=== PATIENT | male | born 1970 | race Caucasian/White ===

== ENCOUNTER 2018-05-28 20:34 | Emergency (ER) | payer MEDICAID ==
[~2018-05-28] VITALS: Ht 185.4 cm; Wt 88.5 kg
[~2018-05-28 20:34] MED LIST: ALPR.25 PO; ASPI325 PO; Amitriptyline H25 MG PO; Bactrim Ds Tab1 EACH PO; CEPH500 PO; CHLO25 PO; CITA20 PO; COLC.6 PO; FOLI1 PO; KETO10 PO; METPRE4DP PO; METTREX2.5 PO; NAPR500 PO; Norco 10-325 T1 EACH PO; OXYACE5T PO; PROM25 PO; Percocet 5-3251 EACH PO; Prednisone20 MG PO; Trexall10 MG PO; Ultram50 MG PO; Vibramycin100 MG PO
[2018-05-28] MEDS ORDERED: KETO10 PO (20:57)
[2018-05-28] MEDS ORDERED: HYDROCORTISON28.4 G4 TOP (20:57)
== END 2018-05-28 21:19 | disposition home or self-care (01) ==
LOC: ER 20:34
DX: L40.9 Psoriasis, unspecified (principal); I10 Essential (primary) hypertension; F17.200 Nicotine dependence, unspecified, uncomplicated
CPT/HCPCS: 99282

== ENCOUNTER 2019-03-14 10:15 | Emergency (ER) | payer MEDICARE ==
[~2019-03-14] VITALS: Ht 182.9 cm; Wt 90.7 kg
[~2019-03-14 10:15] MED LIST changes: +HYDROCORTISON28.4 G4 TOP
[2019-03-14] MEDS ORDERED: IBUP800 PO (12:07)
[2019-03-14] MEDS ORDERED: Norco 5-325 Ta1 EACH PO (12:13)
== END 2019-03-14 12:22 | disposition home or self-care (01) ==
LOC: ER 10:15
DX: M87.9 Osteonecrosis, unspecified (principal); I10 Essential (primary) hypertension; F17.200 Nicotine dependence, unspecified, uncomplicated
CPT/HCPCS: 72100; 73502; 99283-25

== ENCOUNTER 2019-09-30 08:31 | Inpatient (IN) | payer MEDICARE, OTHER ==
[~2019-09-30] VITALS: Ht 177.8 cm; Wt 104.6 kg
[~2019-09-30 08:31] MED LIST changes: +ACET500 PO; +CYCL10 PO; +IBUP400 PO; +IBUP800 PO; +Norco 5-325 Ta1 EACH PO
[2019-09-30 08:54] LABS: Base Excess Venous -21.4 mmol/L; Bicarbonate Venous 10.7 mmol/L (24.0-30.0); PCO2 Venous 29.6 mmHg (38-42); PO2 Venous 73.4 mmHg (38-42)
[2019-09-30 08:56] LABS: pH Blood Venous 7.08 (7.34-7.37)
[2019-09-30 08:58] LABS: Hemoglobin 16.7 g/dL (13.5-17.5); Mean Corpuscular HGB 31.6 pg (26.0-34.0); Mean Corpuscular HGB Conc 32.1 g/dL (31.5-36.5); Mean Corpuscular Volume 99 fL (80-100); Mean Platelet Volume 12.4 fL (9.1-12.4); Platelet Count 77 K/mm3 (150-400); RDW Coefficient Variation 15.2 % (11.7-14.2); RDW Standard Deviation 55.2 fL (35.1-46.3); Red Blood Cell Count 5.28 M/mm3 (4.30-5.90); White Blood Cell Count 33.63 K/mm3 (4.00-11.30)
[2019-09-30 09:08] LABS: Albumin, Blood 1.7 g/dL (3.4-5.0); Albumin/Globulin Ratio 0.2 (0.8-1.8); Bilirubin, Total 5.6 mg/dL (0.1-1.0); Calcium, Blood 7.8 mg/dL (8.5-10.1); Creatinine, Blood 2.16 mg/dL (0.60-1.20); Globulin, Blood 7.4 g/dL (2.2-4.0); Potassium, Blood 5.8 mmol/L (3.5-5.5); Total Protein, Blood 9.1 g/dL (6.4-8.2)
[2019-09-30 09:11] LABS: Creatine Kinase MB 45.4 ng/mL (0.0-3.6)
[2019-09-30 09:22] LABS: Source, Urine Catheter
[2019-09-30 09:23] LABS: BAND PERCENT MAN 7 % (0-8); BASOPHILS PERCENT MAN 0 % (0-2); EOSINOPHILS PERCENT MAN 0 % (0-6); LYMPHOCYTES ABSOLUTE MAN 1.34 K/mm3 (0.84-5.20); LYMPHOCYTES PERCENT MAN 4 % (21-46); MONOCYTES ABSOLUTE MAN 2.69 K/mm3 (0.16-1.47); MONOCYTES PERCENT MAN 8 % (4-13); NEUTROPHILS ABSOLUTE MAN 29.59 K/mm3 (1.96-9.15); SEG NEUTROPHILS PERCENT MAN 81 % (41-73); TOTAL CELLS COUNTED 100
[2019-09-30 09:27] LABS: Blood, Urine 2+ (Neg); Glucose Qualitative, Urine Neg (Neg); Ketones, Urine Neg (Neg); Leukocyte Esterase, Urine 1+ (Neg); Nitrite, Urine Neg (Neg); Protein, Urine 1+ (Neg); Urobilinogen, Urine 3+ (Normal)
[2019-09-30 09:31] LABS: Creatine Kinase MB Index 1.8 (0.0-4.0)
[2019-09-30 09:37] LABS: Appearance, Urine Clear (Clear); Bilirubin, Urine 1+ (Neg); Color, Urine Amber (P-Yellow)
[2019-09-30 09:40] LABS: Amorphous Light (0-Heavy); Bacteria Mod /hpf; Squamous Epithelial Cells Few /hpf (Few); Transitional Epithelial Cells Rare /hpf (0-Rare)
[2019-09-30 09:45] LABS: U Amphetamine Screen DETECTED; U Barbituate Screen Not Detected; U Benzodiazapine Screen Not Detected; U Buprenorphine Screen Not Detected; U Cannabinoids Screen Not Detected; U Cocaine Screen Not Detected; U Methadone Screen Not Detected; U Methamphetamine Screen DETECTED; U Opiates Screen DETECTED; U Oxycodone Screen Not Detected; U Phencyclidine Screen Not Detected; U Propoxyphene Screen Not Detected
[2019-09-30 11:35] LABS: Calcium, Ionized (POC) 0.66 mmol/L (1.10-1.46); Chloride (POC) 104 mmol/L (98-108); Creatinine (POC) 2.4 mg/dL (0.8-1.3); Glucose (ISTAT POC) 256 mg/dL (70-99); Hemoglobin (POC) 14.3 g/dL (13.5-17.5); Potassium (POC) >9.0 mmol/L (3.5-5.5); Sodium (POC) 126 mmol/L (135-148); Total CO2 (POC) 11 mmol/L (21-32)
[2019-09-30 11:45] LABS: Base Excess Venous -18.1 mmol/L; Bicarbonate Venous 12.2 mmol/L (24.0-30.0); PCO2 Venous 28.3 mmHg (38-42); PO2 Venous 86.7 mmHg (38-42)
[2019-09-30 11:46] LABS: pH Blood Venous 7.17 (7.34-7.37)
[2019-09-30 12:18] LABS: Albumin, Blood 1.2 g/dL (3.4-5.0); Albumin/Globulin Ratio 0.2 (0.8-1.8); Bilirubin, Total 4.8 mg/dL (0.1-1.0); Calcium, Blood 6.4 mg/dL (8.5-10.1); Creatinine, Blood 2.1 mg/dL (0.60-1.20); Globulin, Blood 5.1 g/dL (2.2-4.0); Potassium, Blood 5.6 mmol/L (3.5-5.5); Total Protein, Blood 6.3 g/dL (6.4-8.2)
[2019-09-30 14:18] LABS: Acetaminophen, Random <2.0 ug/mL (10.0-30.0); Salicylate <1.7 mg/dL (2.8-20.0)
[2019-09-30 15:26] LABS: BASOPHILS ABSOLUTE AUTO 0.13 K/mm3 (0.00-0.23); BASOPHILS PERCENT AUTO 1 % (0-2); Hematocrit 38.7 % (37.0-53.0); Hemoglobin 12.9 g/dL (13.5-17.5); LYMPHOCYTES PERCENT AUTO 3 % (21-46); MONOCYTES ABSOLUTE AUTO 0.81 K/mm3 (0.16-1.47); MONOCYTES PERCENT AUTO 4 % (4-13); Mean Corpuscular HGB 31.5 pg (26.0-34.0); Mean Corpuscular HGB Conc 33.3 g/dL (31.5-36.5); Mean Platelet Volume 12.2 fL (9.1-12.4); RDW Standard Deviation 52.4 fL (35.1-46.3); White Blood Cell Count 21.14 K/mm3 (4.00-11.30)
[2019-09-30 15:28] LABS: Mean Corpuscular Volume 94 fL (80-100)
[2019-09-30 15:29] LABS: EOSINOPHILS PERCENT AUTO 0 % (0-6); IMMATURE GRAN ABSOLUTE AUTO 0.18 K/mm3 (0.00-0.10); IMMATURE GRAN PERCENT AUTO 1 % (0-1); NEUTROPHILS ABSOLUTE AUTO 19.32 K/mm3 (1.96-9.15); NEUTROPHILS PERCENT AUTO 91 % (41-73)
[2019-09-30 15:31] LABS: Platelet Count 48 K/mm3 (150-400)
--- NOTE | 2019-09-30 16:57 | NUR ---
1500 PT WAS ADMITTED VIA STRETCHER TO ICU-5 AND WILL AROUSE TO QUESTIONS AND COMMENTS BUT RETURNS FALLS OFF TO SLEEP WHEN LEFT ALONE. PT IS ON 6L OXY AND LUNGS ARE VERY DIMINISHED. VS NOTED AND SL LOW. BOLUS TO FOLLOW AND NS HANGING. PT IS TENDER TO MOST OF BODY IF TOUCHED, SEE LACTIC ACID. PT HAS MULTIPLE BLOOD BLISTER OF BLLE, SEE PHOTOS. THE IS A APPROX 4 TO 5 CM SPLIT IN THE SKIN THAT IS TO BE CULTURED AFTER THE PICC LINE IS PLACED. PT HAS WICK TEMP PROBE AND UA WAS SENT FROM ED TO LAB POST CATH. PT IS C/O PAIN WITH TOUCHING AND MOVING OF EXTREMETIES AT RANDOM TIMES WHEN HIS IS ADIQUATELY AROUSED. ABX INFUSING AND NS AT 150ML THEN BOLUS PER DR HORVATH.
--- NOTE | 2019-09-30 17:40 | NUR ---
PT VS HAVE IMPROVED NOTED AND SATS REMAIN STABLE, SEE FLOW SHEET. PT REMAINS CONT TO SLEEP AND AMS. PT HAS REINA PICC AND COMPLETING BOLUS OF NS THAT WILL CONTINUE AT 150 ML ALONG WITH ABX INFUSION. UO HAS BEEN NOTED OF DARK BRAEDEN URINE VIA WICK. UPPER BUTTOCK CRACK SKIN SPLIT/WOUND CULTURE SENT AND PHOTOS DOCUMENTED.
--- NOTE | 2019-09-30 18:40 | NUR ---
PT CBG NOTED AND WILL NONITOR AND REPORT STATUS.
--- NOTE | 2019-09-30 19:54 | NUR ---
Echocardiogram completed.
--- NOTE | 2019-09-30 20:56 | NUR ---
ECHO DONE, PATIENT C/O PAIN WITH SLIGHT MOVEMENT AND WITH PRESSURE DURING ECHO. PATIENT ALSO C/O DRY MOUTH, WITH ORAL CARE ABLE TO GET MODERATE AMT OF THICK MARTÍNEZ SPUTUM OFF OF TONGUE AND STUCK TO ROOF OF MOUTH. PATIENT INCONT OF SOFT BROWN STOOL, ATTENDS CHANGED AND SKIN CLEANSED, DUE TO EXCORIATED SKIN UNABLE TO PLACE DRESSING TO COCCYX WOUND. PLAN TO ATTEMPT TO KEEP SKIN CLEAN AND DRY AND TO KEEP PATIENT POSITIONED SIDE TO SIDE MUCH POSSIBLE. CONTINUES ON 4L/OXY. SCD'S DC'D BY DOCTOR ALEXANDRU DUE TO WOUNDS ON LEGS.
[2019-10-01 04:45] LABS: BASOPHILS ABSOLUTE AUTO 0.03 K/mm3 (0.00-0.23); BASOPHILS PERCENT AUTO 0 % (0-2); EOSINOPHILS PERCENT AUTO 0 % (0-6); Hematocrit 36.6 % (37.0-53.0); Hemoglobin 12.2 g/dL (13.5-17.5); Mean Corpuscular HGB Conc 33.3 g/dL (31.5-36.5); Mean Corpuscular Volume 93 fL (80-100); Mean Platelet Volume 12.3 fL (9.1-12.4); RDW Coefficient Variation 14.9 % (11.7-14.2); RDW Standard Deviation 51.4 fL (35.1-46.3); Red Blood Cell Count 3.93 M/mm3 (4.30-5.90); White Blood Cell Count 14.59 K/mm3 (4.00-11.30)
[2019-10-01 04:53] LABS: IMMATURE GRAN ABSOLUTE AUTO 0.22 K/mm3 (0.00-0.10); IMMATURE GRAN PERCENT AUTO 2 % (0-1); LYMPHOCYTES ABSOLUTE AUTO 0.69 K/mm3 (0.84-5.20); LYMPHOCYTES PERCENT AUTO 5 % (21-46); MONOCYTES ABSOLUTE AUTO 1.44 K/mm3 (0.16-1.47); MONOCYTES PERCENT AUTO 10 % (4-13); NEUTROPHILS ABSOLUTE AUTO 12.21 K/mm3 (1.96-9.15); NEUTROPHILS PERCENT AUTO 84 % (41-73); Platelet Count 37 K/mm3 (150-400)
[2019-10-01 05:04] LABS: Magnesium, Blood 2.6 mg/dL (1.6-2.4)
[2019-10-01 05:07] LABS: Alanine Aminotransfer (ALT/SGP 410 U/L (12-78); Albumin, Blood 1.2 g/dL (3.4-5.0); Albumin/Globulin Ratio 0.2 (0.8-1.8); Alk Phos 144 U/L (50-136); Anion Gap 10 mmol/L (6-16); Aspartate Aminotrans (AST/SGOT 1008 U/L (12-37); Bilirubin, Total 5.8 mg/dL (0.1-1.0); Blood Urea Nitrogen 74 mg/dL (8-24); Bun/Creatinine Ratio 71.2 (12.0-20.0); CO2, Blood 20 mmol/L (21-32); Calcium, Blood 6.2 mg/dL (8.5-10.1); Chloride, Blood 115 mmol/L (98-108); Creatinine, Blood 1.04 mg/dL (0.60-1.20); Glomerular Filtration Rate >60 (60-); Glucose, Blood 126 mg/dL (70-99); Potassium, Blood 4.1 mmol/L (3.5-5.5); Total Protein, Blood 6.2 g/dL (6.4-8.2); Vancomycin, Random 10.1 ug/mL
[2019-10-01 05:17] LABS: PCO2 Arterial 27.5 mmHg (35-45); PO2 Arterial 80.6 mmHg (80-100); pH Blood Arterial 7.46 (7.35-7.45)
[2019-10-01 05:38] LABS: Sodium, Blood 145 mmol/L (136-145)
--- NOTE | 2019-10-01 06:01 | NUR ---
SUMMARY PATIENT AWAKENS EASILY TO SLIGHT STIMULI. REQUESTING WATER TO DRINK, FREQUENT ORAL CARE, SMALL SIPS WATER GIVEN WITH SPOON, PATIENT NIHARIKA WELL. OCCASIONAL COUGH WITH THICK MARTÍNEZ SPUTUM. PATIENT NOW ON RA. RESP CONTINUE 30'S. WICK DRAINING BRAEDEN URINE. PATIENT ABLE TO ASSIST WITH REPOSITIONING T/O NIGHT, ATTEMPTING TO KEEP PATIENT POSITIONED TO HIS SIDES DUE TO REDNESS AND WOUNDS TO HIS BACK AND BUTTOCKS.
--- NOTE | 2019-10-01 08:00 | NUR ---
BEGINNING OF SHIFT Assumed care at 0700. Bedside report received from Cassie GALEAS. Pt A&O x 2. Able to state correct year, but not month or day. Pt's main concern is getting something to drink. Pt NPO at this time. Oral care performed by this RN using suction toothette. Severely dry and cracked mucus membranes noted. Pt on room air. SpO2 90% or greater RA. ST per monitor, rate between 100 and 110. Puentes catheter in place draining clear ines urine. Pt has severely exoriated skin with several scabs and areas of compromised skin from waist down. Pt reports sitting in his own urine at home "since Tuesday" because he felt too weak to get up. Pt also states he has psoriasis, which he attributes to his poor skin condition. Stage 3 pressure ulcer to coccyx. Dr Gold to consult today and evaluate for surgery. Area AUTOMOBILE DAMAGE FIELD APPRAISER at this time because surrounding skin is severely exoriated and not appropriate for any adhesive.
--- NOTE | 2019-10-01 09:45 | NUR ---
ISTRATE IN TO SEE PT States concern that pt reports drinking heavily with relatives. Pt will not provide specifics as to quantity and frequency of alcohol consumption. Plan to monitor for signs of withdrawal.
--- NOTE | 2019-10-01 10:00 | NUR ---
DR PACKER IN TO SEE PT States pt may eat and drink. States patient to work with physical therapy today.
--- NOTE | 2019-10-01 10:45 | NUR ---
DR CABRERA IN TO SEE PATIENT States pt does not require surgery. States to place alginate to site and change dressing several times daily.
--- NOTE | 2019-10-01 12:10 | NUR ---
UPDATE Physical therapy worked with pt. Pt able to dangle on edge of bed but fatigued after about one minute. Attempted to give pt water to sip. Pt had wet cough immediately afterwards, that cleared after one minute. Pt tolerates water by spoon well. Tolerates ice chips by spoon well. Dr Andrade notified. No plans for pt to eat food at this time. Discussed pain control and pt's home opiate regimen. Orders given for dilaudid for pain.
--- NOTE | 2019-10-01 14:43 | NUR ---
CALL PLACED TO DR PACKER Notified provider that pt is not tolerating sips of water. Provider orders for pt to be NPO. ST to be ordered. Also updated provider that pt tolerated dilaudid, and pt actually improved in mentation after receiving it.
--- NOTE | 2019-10-01 16:07 | NUR ---
TRANSFER TO PCU 3 Pt transferred to PCU 3 via bed accompanied by WILMA Hillman and this RN. Transferred from ICU bed to PCU bed using slider sheet and three staff. Pt transferred on room air. D5W infusing through REINA PICC line as ordered. Chart, belongings, and medications transferred with patient.
--- NOTE | 2019-10-01 16:49 | NUR ---
REPORT FROM ADAL KNOWLES IN ICU. ASSUMED CARE IN PCU ROOM 3.
--- NOTE | 2019-10-01 17:53 | NUR ---
SHIFT SUMMARY; IN HOUSE TRANSFER TO PCU IN AFTERNOON. A/A/OX2. ORIENTED TO SELF, CONFUSED ON WHY IN HOSPITAL. PICC LINE TO REINA IN PLACE INFUSING AT THIS TIME. SKIN EXCORATIONS TO LOWER HALF OF BODY IN MULTIPLE STAGES OF HEALING. STAGE III PRESSURE ULCER TO COCCYX PACKED WITH ALIGINATE WOUND DRESSING, EVALUATED TODAY BY DR. CABRERA. WICK IN PLACE DRAINING STRAW COLORED URINE. NPO UNTIL SPEECH THERAPY EVAL TOMORROW. VSS, WILL CONTINUE TO MONITOR UNTIL CHANGE OF SHIFT.
[2019-10-02 04:12] LABS: BASOPHILS ABSOLUTE AUTO 0.01 K/mm3 (0.00-0.23); BASOPHILS PERCENT AUTO 0 % (0-2); EOSINOPHILS PERCENT AUTO 0 % (0-6); Hematocrit 36.8 % (37.0-53.0); Hemoglobin 12.1 g/dL (13.5-17.5); IMMATURE GRAN ABSOLUTE AUTO 0.07 K/mm3 (0.00-0.10); IMMATURE GRAN PERCENT AUTO 1 % (0-1); LYMPHOCYTES ABSOLUTE AUTO 1.07 K/mm3 (0.84-5.20); LYMPHOCYTES PERCENT AUTO 13 % (21-46); MONOCYTES ABSOLUTE AUTO 1.17 K/mm3 (0.16-1.47); MONOCYTES PERCENT AUTO 14 % (4-13); Mean Corpuscular HGB 30.9 pg (26.0-34.0); Mean Corpuscular HGB Conc 32.9 g/dL (31.5-36.5); Mean Corpuscular Volume 94 fL (80-100); Mean Platelet Volume 11.9 fL (9.1-12.4); NEUTROPHILS PERCENT AUTO 72 % (41-73); RDW Coefficient Variation 15.4 % (11.7-14.2); Red Blood Cell Count 3.92 M/mm3 (4.30-5.90); White Blood Cell Count 8.22 K/mm3 (4.00-11.30)
[2019-10-02 04:16] LABS: Platelet Count 38 K/mm3 (150-400)
[2019-10-02 04:29] LABS: Alanine Aminotransfer (ALT/SGP 396 U/L (12-78); Albumin, Blood 1.3 g/dL (3.4-5.0); Albumin/Globulin Ratio 0.2 (0.8-1.8); Alk Phos 119 U/L (50-136); Anion Gap 6 mmol/L (6-16); Aspartate Aminotrans (AST/SGOT 614 U/L (12-37); Bilirubin, Total 5.5 mg/dL (0.1-1.0); Blood Urea Nitrogen 41 mg/dL (8-24); Bun/Creatinine Ratio 58.2 (12.0-20.0); CO2, Blood 23 mmol/L (21-32); Chloride, Blood 123 mmol/L (98-108); Globulin, Blood 5.7 g/dL (2.2-4.0); Glomerular Filtration Rate >60 (60-); Glucose, Blood 102 mg/dL (70-99); Potassium, Blood 3.9 mmol/L (3.5-5.5); Sodium, Blood 152 mmol/L (136-145)
--- NOTE | 2019-10-02 06:01 | NUR ---
SHIFT SUMMARY: PATIENT WOUND CARE COMPLETED WITH SOME DIFFICULTY. SKIN HAS MULTIPLE OPEN AREAS ON THE BUTTOCKS AND IS VERY HARD TO GET ANY KIND OF BANDAGE ON. COCCYX HAS BEEN TREATED WITH ALGINATE PER MD ORDER. PATIENT CONFUSED, TALKING NONSENSE AND VERY DIFFICULT TO UNDERSTAND. PATIENT LEFT ARM AND FOOT CONTINUES TO SWELL, LARGER THAN RIGHT, WILL NOTIFY MD. PAIN CONTROL=SEE EMAR, POSITIONING PATIENT ALLOWS. PATIENT APPEARS TO BE CHEWING ON HIS TONGUE AND HAS SOME DRIED BLOOD ON HIS LIPS, ORAL CARE COMPLETED. VSS, CALL LIGHT WITHIN REACH, BED LOW AND LOCKED WITH EXIT ALARM ON.
[2019-10-02 08:11] LABS: HBSAG SCREEN Negative (Negative); HEP A AB, IGM Negative (Negative); HEP B CORE AB, IGM Negative (Negative); HEP C VIRUS AB 0.3 (0.0-0.9)
--- NOTE | 2019-10-02 19:30 | NUR ---
PT SUMMARY: PT IS ALERT AND ABLE TO ANSWER SIMPLE QUESTIONS, ABLE TO STATE HIS NAME AND , FOLLOWS SIMPLE DIRECTIONS. PT IS HERE FOR SEPSIS, FLUIDS RESTARTED D50.5NS AND NS BOTH RUNNING AT 100 MLS, NS TO RUN ONLY FOR 12 HRS RUG SIZER NURSE MADE AWARE. PT ALSO HAS BEEN HAVING FEVERS 100-102F, PT HAS RECEIVED DILAUDID Q2HRS AND IS NOT EFFECTIVE REQUESTED TYLENOL SUPP 650 TEMP WENT DOWN TO 99.0 ALSO WITH TEPID BATH PROVIDED. PT IS CURRENTLY NPO PER ST ORDERS PT HAS BEEN ASKING TO DRINK WATER ORAL SWABS AND SUCTION PROVIDED. PT WOUND DRESSINGS CHANGED ON HIS BOTTOM PER ORDERS. NEW IV ABO ZOSYN AND VANCO TX FOR ENDOCARDITIS. PT STARTED TO GET AGITATED FOR NOT BEING ABLE TO DRINK WATER, CIWA DONE PER ORDERS STABLE AT 8, ATIVAN 1MG GIVEN AND WAS EFFECTIVE. PT CURRENTLY NOW RESTING IN BED AND HAS BEEN REPOSITIONED. CALL LIGHTS WITHIN REACH, REPORT GIVEN TO RUG SIZER NURSE. CARDIOLOGYAND INFECTIOUS DR ON BOARD.
--- NOTE | 2019-10-02 21:32 | NUR ---
PATIENT AWAKE AND RESTLESS, ITCHING JASEN AREA AND PULLING AT CLOTHING. ORIENTED TO SELF AND BEING IN THE HOSPITAL, BUT UNSURE OF TOWN OR DATE. ATIVAN GIVEN FOR CIWA OF 10, TEMP 102.2 TYLENOL [place] GIVEN. ORAL SWAB DONE DUE TO PATIENT NPO STATUS DUE TO ASPIRATION.
[2019-10-03 04:21] LABS: BASOPHILS ABSOLUTE AUTO 0.01 K/mm3 (0.00-0.23); BASOPHILS PERCENT AUTO 0 % (0-2); EOSINOPHILS PERCENT AUTO 0 % (0-6); Hematocrit 33.5 % (37.0-53.0); Hemoglobin 10.8 g/dL (13.5-17.5); Mean Corpuscular HGB 31.3 pg (26.0-34.0); Mean Corpuscular HGB Conc 32.2 g/dL (31.5-36.5); Mean Platelet Volume 11.3 fL (9.1-12.4); RDW Standard Deviation 57.7 fL (35.1-46.3); Red Blood Cell Count 3.45 M/mm3 (4.30-5.90); White Blood Cell Count 5.43 K/mm3 (4.00-11.30)
[2019-10-03 04:23] LABS: IMMATURE GRAN ABSOLUTE AUTO 0.04 K/mm3 (0.00-0.10); IMMATURE GRAN PERCENT AUTO 1 % (0-1); LYMPHOCYTES PERCENT AUTO 17 % (21-46); MONOCYTES ABSOLUTE AUTO 0.69 K/mm3 (0.16-1.47); MONOCYTES PERCENT AUTO 13 % (4-13); Mean Corpuscular Volume 97 fL (80-100); NEUTROPHILS ABSOLUTE AUTO 3.79 K/mm3 (1.96-9.15); NEUTROPHILS PERCENT AUTO 70 % (41-73)
[2019-10-03 04:24] LABS: Platelet Count 36 K/mm3 (150-400)
[2019-10-03 04:39] LABS: Alanine Aminotransfer (ALT/SGP 271 U/L (12-78); Albumin, Blood 1.1 g/dL (3.4-5.0); Albumin/Globulin Ratio 0.2 (0.8-1.8); Alk Phos 93 U/L (50-136); Anion Gap 5 mmol/L (6-16); Aspartate Aminotrans (AST/SGOT 292 U/L (12-37); Bilirubin, Total 6.2 mg/dL (0.1-1.0); Blood Urea Nitrogen 26 mg/dL (8-24); CO2, Blood 23 mmol/L (21-32); Calcium, Blood 7.2 mg/dL (8.5-10.1); Chloride, Blood 132 mmol/L (98-108); Creatinine, Blood 0.72 mg/dL (0.60-1.20); Globulin, Blood 5.9 g/dL (2.2-4.0); Glomerular Filtration Rate >60 (60-); Glucose, Blood 104 mg/dL (70-99); Potassium, Blood 3.8 mmol/L (3.5-5.5); Sodium, Blood 160 mmol/L (136-145)
--- NOTE | 2019-10-03 06:03 | NUR ---
SUMMARY PATIENT RESTLESS OFF AND ON T/O NIGHT, CIWA RANGING 4 TO 13, MEDICATED WITH ATIVAN WITH GOOD RESULTS. PATIENT MEDICATED WITH DILAUDID X1 BEFORE COCCYX DRESSING CHANGE. PATIENT REMAINS ON RA. FREQUENT ORAL CARE DONE DUE TO DRY MOUTH. PATIENT REMAINS NPO PER ASPIRATION RISK DURING SWALLOW EVAL. DRESSING PLACED TO RIGHT ANKLE DUE TO BLISTER/SCAB OPEN. GENERALIZED EDEMA CONTINUES. SPOKE TO PATIENTS FRIEND WHO HAS THE PROPERTY THAT PATIENT HAS BEEN STAYING, FRIEND VERBALIZED CONCERN REGARDING PATIENT COMING BACK TO THE TRAILER HE HAS BEEN STAYING IN, PLAN TO CONSULT SCIENTIFIC ARTIST.
--- NOTE | 2019-10-03 14:46 | NUR ---
Pt resting in bed with his eyes closed upon arrival. Pt breifly awakes and appears agitated. Pt attempts to communicate but speach is unintelligable. Pt quckly closes his eyes and appears to be sleeping. Spoke with Bedside RN Sasha and discussed case. Pt may be going through withdrawel, CIWA scores have been up to 12 today. No known NOK listed on Pt's chart. Called 's office and obtained Margarita Pisano's number that was listed as a girlfriend in 2017. Called and spoke with Margarita. Margarita will contact Pt's sister and have her call Palliative Care. Spoke with Pt's sister Ramandeep Roberts [phone]. Ramandeep reports having a falling out with her brother (Pt) some time back due to his alcohol and drug use. Ramandeep does report willingness to make decisions if needed and hospital can list her has a supply person. Ramandeep requests for hospitalist to call her with an update. No other concerns reported at this time. Spoke with Dr Dejesus and relayed sister's request for an update. Called admitting and updated NOK contact information. Palliative Care will remain available.
--- NOTE | 2019-10-03 18:05 | NUR ---
patient father called Julian Roberts [phone]. information given to nursing. Brief update to father after confirming who he was. will update family tomorrow to assist with decisions. will update medicare compliance auditor and look at prognositication
--- NOTE | 2019-10-03 18:46 | NUR ---
PT SUMMARY: PT WAS RESTLESS THIS MORNING, BUT EASILY AROUSABLE, UNABLE TO ANSWER QUESTIONS APPROPRIATELY, GETS AGITATED AT TIMES ATIVAN 1MG GIVEN X1, DILAUDID 1MG X2 PT IS PAINFUL WITH MOVEMENTS ON BOTH ARMS AND LEGS. PT DIDN'T COOPERATE WITH THERAPY TODAY PT REMAINS CONFUSED AND UNABLE TO FOLLOW DIRECTION. CIWA 8-12 FOR THE SHIFT. NO ATTEMPTS OF TRYING TO GET OUT OF BED, CONTINUES ON IV ABO, HRR SINUS TACH ON THE 100'S, BP SYSTOLIC 140'S-160'S THE REST OF THE VITALS STABLE. PT HAS BEEN REPOSITIONED Q 2HRS, WOUND AND PICC LINE DRESSING CHANGED FOR THE SHIFT. PT TO BE SEEN BY DR CHACON TOMORROW FOR ENDOCARDITIS. PT REMAINED RESTING IN BED, CALL LIGHTS WTIHIN REACH, WILL REPORT TO ONCOMING SHIFT
[2019-10-03 20:47] LABS: Vancomycin, Trough 14.7 ug/mL (5.0-10.0)
--- NOTE | 2019-10-03 22:33 | NUR ---
Assumed Care Report recieved from ADAL Baez at 1910 and care assumed. Pt lying in bed, eyes closed but responsive. When moving his left hand, he moans in pain and opens his eyes. per report, he has been drowsy since dilauded administration. Repositioning this pt q2 hrs per orders. VSS. See shift assessment for detailed systems assessment. PICC to REINA, patent and draws labs. ABX infusing. Pt is tachypneic, mildly labored breathing pattern at rest. CIWA q4 per orders. Will continue to monitor.
[2019-10-04 07:09] LABS: HIV SCREEN 4TH GENERATION WRFX Non Reactive (Non Reactive)
--- NOTE | 2019-10-04 07:44 | NUR ---
SHIFT SUMMARY Pt remains non verbal throughout this shift, RR ranging 26-38 with pain and withdrawl. Oxygen sats wnl. No changes to lung meraz throughout shift. Pt lethargic all shift. Painful and medicated with dilauded prn. Ativan given for withdrawl sx; total of 3mg given this shift. See chart for VS. Labored breathing, RA, tachypnea; nurse charge rn aware and at bedside for visualization. PICC to REINA. CBG q4 hr. Q2 turns tolerated poor, weak, and painfully. Wounds as documented in chart, pictures in chart. Report given to ADAL Victor.
--- NOTE | 2019-10-04 08:44 | NUR ---
Bertrand was not responsive at the time of bedside report; AT this time, he did respond to me briefly by opening his eyes, and spontaneously looking around the room, and reaching and picking at the air. I asked him if he was in pain, and he softly whispered, No. I asked him if he could tell me his name, and again he said no. I asked if he could see me, and he said nodded yes. I explained that he was in the hospital, and he didn't make any response. He eventually closed his eyes and is back asleep apparently. He is tachypneic, occasionally coughing, but the cough does not sound productive. spo2 97 on room air. He is tachycardic, with a gallop sounding heart sounds.
--- NOTE | 2019-10-04 09:45 | NUR ---
chest x ray done at this time. The pt was repositioned again on the right side, with the left arm elevated. His left forearm and left hand are extremely swollen, and per the physical therapist this is a significant change from yesterday. Speech therapist here to see the pt at this time.
[2019-10-04 09:53] LABS: BASOPHILS PERCENT AUTO 0 % (0-2); EOSINOPHILS PERCENT AUTO 0 % (0-6); Hematocrit 34.9 % (37.0-53.0); IMMATURE GRAN ABSOLUTE AUTO 0.03 K/mm3 (0.00-0.10); IMMATURE GRAN PERCENT AUTO 1 % (0-1); LYMPHOCYTES ABSOLUTE AUTO 0.78 K/mm3 (0.84-5.20); LYMPHOCYTES PERCENT AUTO 14 % (21-46); MONOCYTES ABSOLUTE AUTO 0.41 K/mm3 (0.16-1.47); MONOCYTES PERCENT AUTO 7 % (4-13); Mean Corpuscular HGB 31.1 pg (26.0-34.0); Mean Corpuscular HGB Conc 31.5 g/dL (31.5-36.5); Mean Corpuscular Volume 99 fL (80-100); Mean Platelet Volume 10.7 fL (9.1-12.4); NEUTROPHILS ABSOLUTE AUTO 4.36 K/mm3 (1.96-9.15); NEUTROPHILS PERCENT AUTO 78 % (41-73); RDW Coefficient Variation 15.9 % (11.7-14.2); RDW Standard Deviation 58.3 fL (35.1-46.3); Red Blood Cell Count 3.54 M/mm3 (4.30-5.90); White Blood Cell Count 5.58 K/mm3 (4.00-11.30)
[2019-10-04 10:05] LABS: Platelet Count 40 K/mm3 (150-400)
[2019-10-04 10:06] LABS: Magnesium, Blood 1.9 mg/dL (1.6-2.4)
[2019-10-04 10:07] LABS: Alanine Aminotransfer (ALT/SGP 176 U/L (12-78); Albumin, Blood 1.2 g/dL (3.4-5.0); Albumin/Globulin Ratio 0.2 (0.8-1.8); Alk Phos 87 U/L (50-136); Anion Gap 5 mmol/L (6-16); Aspartate Aminotrans (AST/SGOT 127 U/L (12-37); Bilirubin, Total 5.4 mg/dL (0.1-1.0); Blood Urea Nitrogen 19 mg/dL (8-24); Bun/Creatinine Ratio 29.2 (12.0-20.0); CO2, Blood 22 mmol/L (21-32); Calcium, Blood 7.4 mg/dL (8.5-10.1); Chloride, Blood 133 mmol/L (98-108); Creatinine, Blood 0.65 mg/dL (0.60-1.20); Globulin, Blood 6.1 g/dL (2.2-4.0); Glomerular Filtration Rate >60 (60-); Glucose, Blood 110 mg/dL (70-99); Potassium, Blood 3.9 mmol/L (3.5-5.5); Sodium, Blood 160 mmol/L (136-145); Total Protein, Blood 7.3 g/dL (6.4-8.2)
--- NOTE | 2019-10-04 11:25 | NUR ---
Spoke with Dr. Dejesus regarding thept's left arm edema. Duplex ordered of the left arm. Called Dr. Byrd regarding the consultation request. new orders for iv fluids to be changed. Called the pharmacy and spoke with Tania with instructions from that all IV fluids, IVPB need to be in D5W, no sodium at all.
--- NOTE | 2019-10-04 13:46 | NUR ---
Fever and tachypnea as documented in record. Cooling measures were done: Tylenol suppository given, bed bath with cool water, extra clothing and bedding removed, fan in place near patient's head, ice packs to arm pits and neck. Respirations remain tachypneic, heart rate is slightly decreased, and fever is starting to reduce. The pt remains minimally responsive as he was this morning, only responding when moved (grimaces, groans as the extremities, particularly the left arm seem to be painful) or when stimulated verbally/tactile. AGUILAR hose were applied to BLE, as the SCDs alone were causing imprints on his calves while the ankles and feet were remaining swollen. All extremities which are edematous were elevated on pillows and the pt was repositioned to supine position following the cooling measures.
--- NOTE | 2019-10-04 15:10 | NUR ---
Pt remains tachypneic, more alert at this time, moving his arms, non purposefully, whispers "no" when asked if he is in pain. Turning his head side to side, looking around the room, but no spontaneous conversation. States "no" when asked if he is uncomfortable. Vital signs taken, noted improved from 1 hour ago. IVF rate increased at this time per Dr. Byrd's telephone order when most recent sodium level was called to him.
--- NOTE | 2019-10-04 17:17 | NUR ---
Dr. Byrd here to see the pt; labs reviewed, imaging from today reviewed.
--- NOTE | 2019-10-04 18:25 | NUR ---
SUMMARY The pt has been tachypneic throughout the shift. He also spiked a fever of 103.7 at the time of his antibiotics being changed and IVF fluids also changed. He was given Tylenol and cooling measures, which martha his fever down. At present it is less than 101.0. However, he remains tachypneic but maintaining spo2 of 99% on room air. He has an occasional moist sounding cough but does not seem able to expectorate. He has become more alert, and more responsive as the shift progressed. CIWA score was 4-5, but this was also perhaps due to his altered mental status since admission, and diaphoresis related to his fever, not particularly withdrawl symptoms. At this time, it has been 4 days since his admission to the hospital. His symptoms certainly have not worsened without the administration of bezodiadepines today, and his mentation has been improving. He is very painful in his extremities when repositioned, but when he has been at rest for a while he denies being in pain. His extremities are elevated to reduce the swelling, and AGUILAR hose were applied to his legs.
--- NOTE | 2019-10-04 20:47 | NUR ---
ASSUMED CARE/RAPID RESPONSE/TRANSFER TO ICU 6 Report recieved from ADAL Victor at 1900 and care assumed. Pt sitting in bed, breathing labored and tachypneic at 40 bpm, consistant with day shift per report. Pt withdrawn and minimally verbally responsive. Following simple commands. Weak cough present, suction set up at bedside and pt suctioned for secretions. small amount of sputum suctioned. Pt suddently in respiratory distress and unable to handle secreations at approx 1959; rapid response initiated. see HIGH SCHOOL SCIENCE TEACHER intitiation charting for details. Pt ultimately transferred to ICU 6 at 2019 and report given to Jesus Arellano RN who assumes care.
[2019-10-04 21:28] LABS: pH Blood Venous 7.43 (7.34-7.37)
[2019-10-04 21:29] LABS: Base Excess Venous -1.7 mmol/L; PCO2 Venous 34.3 mmHg (38-42); PO2 Venous 42.2 mmHg (38-42)
--- NOTE | 2019-10-04 23:31 | NUR ---
PT ARRIVES TO ROOM ICU 6 AT 2009 FROM TITRATOR INITIATED IN PCU. REPORT RECEIVED AT BEDSIDE. PT IN RESPIRATORY DISTRESS AT THE TIME OF ARRIVAL. ON NONREBREATHER MASK AT FLUSH. MAINTAINS OXYGEN SATURATION AT OR JUST ABOVE 90 PERCENT. PT NONVERBAL AND DOES NOT FOLLOW COMMANDS. PT NOTED TO HAVE BLOOD ENCRUSTED TO TONGUE AND ORAL MUCOUSA. NASAL TRUMPE IN PLACE. PT'S RESPIRATORY RATE HAS INCREASED INT 40 BMP. DEMONSTRATING AIR HUNGER. PROMPTED CHARG RN TO CALL IN DR CANNON WITH POSSIBLE INDICATION OF RAPID INTUBATION. PT NOTED TO HAVE NO AIR EXCHANGE IN RIGHT MID TO LOWER BASE. PT HAS STIDOR TYPE RESPIRATION, AND THEN TO OCCLUSSION. AGGRESSIVE DEEPER YAUNKEUR SUCTIONING DONE WHICH RETRIEVE A VERY THICK CAST WHICH APPEARED DRIED BLOOD CLOT. VERY LARGE IN SIDE. NEEDED TO BE GRIPPED AND MANUALLY REMOVED FROM ORAL AIRWAY. PT IMMEDIATELY WAS ABLE BREATHE DEEP, AND MENTATION BEGAN TO IMPROVED. DR PACKER ARRIVES TO UNIT, AND IS UPDATED ON FINDINGS. ABLE TO AUSCULTATE AIR MOVEMENT TO LOWER RIGHT LUNG FIELD. DR PACKER SETS UP AND DOES BRONCHOSCOPY WHEREAS HE IS ABLE TO REMOVE MORE AIRWAY CASTING. PT WAS MEDICATED WITH 1 MG DILAUDID PRIOR TO PROCEDURE, AND USE OF XYLOCAINE JELLY FOR COMFORT. PT TOLERATED PROCEDURE FAIR. PT CURRENTLY ON ROOM AIR. RESPIRATORY RATE MID 20'S TO 30'S. HAVE DONE ORAL CARE TWICE TO IMPROVE ORAL HYGEINE. PRIOR TO BRONCOSCOPY, AND PRIOR TO DILAUDID, PT FEINED DRINKING A BEER. PT UNABLE FOLLOW COMMANDS. WILL CONTINUE TO MONITOR PT.
[2019-10-05 05:00] LABS: BASOPHILS PERCENT AUTO 0 % (0-2); EOSINOPHILS PERCENT AUTO 0 % (0-6); Hematocrit 30.5 % (37.0-53.0); Hemoglobin 9.8 g/dL (13.5-17.5); IMMATURE GRAN ABSOLUTE AUTO 0.04 K/mm3 (0.00-0.10); IMMATURE GRAN PERCENT AUTO 1 % (0-1); LYMPHOCYTES ABSOLUTE AUTO 0.83 K/mm3 (0.84-5.20); LYMPHOCYTES PERCENT AUTO 18 % (21-46); MONOCYTES ABSOLUTE AUTO 0.34 K/mm3 (0.16-1.47); MONOCYTES PERCENT AUTO 8 % (4-13); Mean Corpuscular HGB 31.5 pg (26.0-34.0); Mean Corpuscular HGB Conc 32.1 g/dL (31.5-36.5); Mean Corpuscular Volume 98 fL (80-100); Mean Platelet Volume 12.5 fL (9.1-12.4); NEUTROPHILS ABSOLUTE AUTO 3.35 K/mm3 (1.96-9.15); NEUTROPHILS PERCENT AUTO 73 % (41-73); RDW Standard Deviation 58.1 fL (35.1-46.3); Red Blood Cell Count 3.11 M/mm3 (4.30-5.90); White Blood Cell Count 4.56 K/mm3 (4.00-11.30)
[2019-10-05 05:10] LABS: Platelet Count 36 K/mm3 (150-400)
[2019-10-05 05:17] LABS: Magnesium, Blood 1.9 mg/dL (1.6-2.4)
[2019-10-05 05:18] LABS: Alanine Aminotransfer (ALT/SGP 129 U/L (12-78); Albumin, Blood 1.1 g/dL (3.4-5.0); Albumin/Globulin Ratio 0.2 (0.8-1.8); Alk Phos 81 U/L (50-136); Anion Gap 4 mmol/L (6-16); Aspartate Aminotrans (AST/SGOT 92 U/L (12-37); Bilirubin, Total 5.2 mg/dL (0.1-1.0); Blood Urea Nitrogen 16 mg/dL (8-24); Bun/Creatinine Ratio 24.8 (12.0-20.0); CO2, Blood 23 mmol/L (21-32); Calcium, Blood 7.2 mg/dL (8.5-10.1); Chloride, Blood 129 mmol/L (98-108); Creatinine, Blood 0.65 mg/dL (0.60-1.20); Globulin, Blood 5.8 g/dL (2.2-4.0); Glomerular Filtration Rate >60 (60-); Glucose, Blood 110 mg/dL (70-99); Phosphorus, Blood 3.2 mg/dL (2.5-4.9); Potassium, Blood 3.8 mmol/L (3.5-5.5); Sodium, Blood 156 mmol/L (136-145); Total Protein, Blood 6.9 g/dL (6.4-8.2)
--- NOTE | 2019-10-05 07:35 | NUR ---
ASSUMED CARE: WALKED IN ROOM D/T PT R ARM IN THE AIR IF HE WAS TRYING TO GET SOMEONES ATTENTNION. PT DENIES NEEDS AND NO ACUTE DISTRESS NOTED. RECEIVED BEDSIDE REPORT FROM NOC RN. PT DOES NOT APPEAR TO BE ANSWERING QUESTIONS APPROPRATELY AND WHEN ASKED TO WIGGLE HIS FINGERS HE WIGGLES HIS WHOLE BODY. PT APPEARS TO BE SLIGHTLY DAZED. WILL CONTINUE TO MONITOR AND ASSESS FURTHER.
--- NOTE | 2019-10-05 10:45 | NUR ---
DR TOTRATE: TO ASSESS PT. ORDERED FENTENYL PATCH AND DC'D THE DILAUDID. PT IS NOTED TO BE HAVING LOTS OF PAIN WITH ANY MOVEMENT.
--- NOTE | 2019-10-05 10:55 | NUR ---
DR SANCHEZ: DR SANCHEZ IN TO ASSESS PT. ORDERED FOR AN ULTRASOUND ON PT'S R RING FINGER D/T SWELLING. WILL CONTINUE TO MONITOR AND ASSESS FURTHER.
--- NOTE | 2019-10-05 12:00 | NUR ---
ULTRASOUND RESULTS: RECEIVED REPORT ON ULTRASOUND SHOWING AN ABCESS IN PT'S FINGER. PLANS TO DRAIN.
[2019-10-05 12:42] LABS: Gentamicin, Trough <0.2 ug/mL (0.0-1.9)
[2019-10-05 13:04] LABS: International Normalized Ratio 1.45; Prothrombin Time Results 15.2 Sec (9.7-11.5)
--- NOTE | 2019-10-05 14:35 | NUR ---
ABCESS DRAIN: PT GIVEN MINIMAL LIDOCAIN PRIOR TO DRAINING ABCESS, BUT PT DID NTO MOVE OR RESPOND TO PAIN THEREFORE PA WENT STREIGHT TO DRAINING THE ABCESS. ORDER FOR CULTURE PLACED BY DR SANCHEZ
--- NOTE | 2019-10-05 15:00 | NUR ---
RECTAL TUBE, DRESSINGS, PICTURES: TURNED PT ONTO HIS R SIDE TO ASSESS SPINE, OTHER JOINTS AND BONY PROMINENCES. DR SANCHEZ CALLED TO BEDSIDE TO VIEW WOUNDS. PICTURES TAKEN OF L ELBOW. PT WAS NOTED TO BE VERY SCABBED, FLAKEY AND WOUNDS ALL OVER BUTTOCK. BM NOTED ON CHUCKS THAT APPEARED TO BE LIQUID GREEN. WITH DR SANCHEZ VERBAL ORDER PLACED RECTAL TUBE. PT IS VERY STIFF AND DIFFICULT TO VISUALIZE RECTUM. WHEN TURNING PT BACK OT THE L SIDE PT STATES "NO" TO WHICH HE WAS EDUCATED ON NEED TO REMOVE SOILED LENINS. BED BATH COMPLETED.
--- NOTE | 2019-10-05 17:00 | NUR ---
HUMIDIFICATION: EVEN WITH ORAL CARE PT MOUTH IS VERY DRY AND AIR WAY SOUNDS VERY DRY WHENEVER PT ATTEMPTS TO COUGH. PLACED PT ON HUMIDIFIED AIR VIA NC.
[2019-10-05 17:17] LABS: Anion Gap 3 mmol/L (6-16); Blood Urea Nitrogen 15 mg/dL (8-24); Bun/Creatinine Ratio 23.8 (12.0-20.0); CO2, Blood 23 mmol/L (21-32); CPK Creatine Kinase 113 U/L (39-308); Calcium, Blood 7.5 mg/dL (8.5-10.1); Chloride, Blood 124 mmol/L (98-108); Creatinine, Blood 0.63 mg/dL (0.60-1.20); Glomerular Filtration Rate >60 (60-); Glucose, Blood 99 mg/dL (70-99); Magnesium, Blood 1.8 mg/dL (1.6-2.4); Phosphorus, Blood 2.7 mg/dL (2.5-4.9); Potassium, Blood 3.8 mmol/L (3.5-5.5); Sodium, Blood 150 mmol/L (136-145)
--- NOTE | 2019-10-05 17:53 | NUR ---
DR POWERS: CALLED DR POWERS TO NOTIFY OF NEW NA+ LEVELS NEW ORDERS RECEIVED.
--- NOTE | 2019-10-05 18:42 | NUR ---
DIETARY: DIETARY QUESTIONED PT'S NPO ORDER AND DISCUSSED OPTIONS FOR NUTRITION. WILL DISCUSS CLINIMIX WITH DR ON ROUNDS.
--- NOTE | 2019-10-05 20:00 | NUR ---
ASSUMPTION OF CARE: PT ALERT, ORIENTED TO SELF, FOLLOWING SOME COMMANDS. PT IS SLOW TO RESPOND TO QUESTIONS. PT IN ST, HR IN THE 110S-120S. SBP 120-140S. LUNG SOUNDS ARE WHEEZY AND DIM IN BASES. ON HUMIDIFIED AIR. SPO2 >90%. PT IS TACHYPNEIC. PT IS STRICT NPO. RECTAL TUBE IN PLACE. PICC TO REINA INFUSING WITH D5W AT 75MLS/HR AND CLINIMIX AT 75MLS/HR. WICK IN PLACE DRAINING DARK YELLOW URINE. SKIN IS DRY, SCALY, PEELING. COCCYX, BUTTOCKS, AND BACK OF THIGHS ARE RED AND EXCORIATED. MEPILEX IN MULTIPLE AREAS ON THIGHS. L ARM IS SWOLLEN, L SHOULDER IS RED. MOUTH IS VERY DRY WITH CASTS AND DRIED BLOOD. FREQUENT ORAL CARE BEING PROVIDED. WILL CONTINUE TO MONITOR
--- NOTE | 2019-10-05 21:39 | NUR ---
2100 SODIUM RESULT BACK-150. DR POWERS CALLED AND WAS UPDATED. NO NEW ORDERS RECEIVED.
[2019-10-06 03:59] LABS: BASOPHILS ABSOLUTE AUTO 0.01 K/mm3 (0.00-0.23); BASOPHILS PERCENT AUTO 0 % (0-2); EOSINOPHILS PERCENT AUTO 0 % (0-6); Hemoglobin 10.2 g/dL (13.5-17.5); IMMATURE GRAN ABSOLUTE AUTO 0.03 K/mm3 (0.00-0.10); IMMATURE GRAN PERCENT AUTO 1 % (0-1); LYMPHOCYTES ABSOLUTE AUTO 1.34 K/mm3 (0.84-5.20); LYMPHOCYTES PERCENT AUTO 20 % (21-46); MONOCYTES PERCENT AUTO 6 % (4-13); Mean Corpuscular HGB 31.4 pg (26.0-34.0); Mean Corpuscular HGB Conc 32.9 g/dL (31.5-36.5); Mean Platelet Volume 12.4 fL (9.1-12.4); NEUTROPHILS ABSOLUTE AUTO 4.88 K/mm3 (1.96-9.15); NEUTROPHILS PERCENT AUTO 73 % (41-73); RDW Coefficient Variation 15.4 % (11.7-14.2); RDW Standard Deviation 54.2 fL (35.1-46.3); Red Blood Cell Count 3.25 M/mm3 (4.30-5.90); White Blood Cell Count 6.66 K/mm3 (4.00-11.30)
[2019-10-06 04:03] LABS: Mean Corpuscular Volume 95 fL (80-100); Platelet Count 41 K/mm3 (150-400)
[2019-10-06 04:21] LABS: Alanine Aminotransfer (ALT/SGP 100 U/L (12-78); Albumin, Blood 1.1 g/dL (3.4-5.0); Albumin/Globulin Ratio 0.2 (0.8-1.8); Alk Phos 72 U/L (50-136); Anion Gap 5 mmol/L (6-16); Aspartate Aminotrans (AST/SGOT 76 U/L (12-37); Bilirubin, Total 5.6 mg/dL (0.1-1.0); Blood Urea Nitrogen 18 mg/dL (8-24); Bun/Creatinine Ratio 28.5 (12.0-20.0); CO2, Blood 21 mmol/L (21-32); Calcium, Blood 7.7 mg/dL (8.5-10.1); Chloride, Blood 123 mmol/L (98-108); Creatinine, Blood 0.63 mg/dL (0.60-1.20); Globulin, Blood 6.3 g/dL (2.2-4.0); Glomerular Filtration Rate >60 (60-); Glucose, Blood 91 mg/dL (70-99); Magnesium, Blood 1.8 mg/dL (1.6-2.4); Phosphorus, Blood 3.5 mg/dL (2.5-4.9); Sodium, Blood 149 mmol/L (136-145); Total Protein, Blood 7.4 g/dL (6.4-8.2); Triglycerides 183 mg/dL (30-160)
[2019-10-06 04:51] LABS: C-REACTIVE PROTEIN, EXT RANGE >19.000 mg/dL (0.000-0.300)
--- NOTE | 2019-10-06 06:05 | NUR ---
SHIFT SUMMARY: PT ALERT MOST OF NIGHT. SLEPT VERY BRIEFLY. REMAINS ABLE TO FOLLOW SOME SIMPLE COMMANDS. FEBRILE AT BEGINNING OF SHIFT, BUT CURRENTLY AFEBRILE. COARSE/WHEEZY LUNG SOUNDS, DIM IN BASES. REMAINS ON HUMIDIFIED AIR. SPO2 >90% ALL SHIFT. PT IS FAIRLY TACHYPNEIC. IN SR-ST. HR IN THE 110-120S,SBP STABLE. RECTAL TUBE IN PLACE-MINIMAL OUTPUT. WICK DRAINING TO GRAVITY-URINE IS DARK YELLOW. SKIN AROUND MOUTH AND TONGUE DRY-DRIED BLOOD ON LIPS AND IN MOUTH. ORAL CARE PROVIDED FREQUENTLY HOWEVER AT END OF SHIFT PT WAS FOUND TO HAVE BLOOD ON HAND, SHEET. BLOOD FOUND ON LIPS AND IN MOUTH. ORAL CARE PROVIDED TO ATTEMPT TO CLEAN BLOOD AND CASTS OFF LIPS AND MOUTH. MINIMALLY EFFECTIVE. L ARM IS STILL SWOLLEN, BUT UNCHANGED T/O SHIFT. LOWER EXTREMITIES STARTING AT COCCYX IS RED, PEELING, SCALING. MEPILEX TO L THIGH. SOME EXUDATE. PICS IN CHART. PICC IN REINA WITH CLINIMIX INFUSING AT 75MLS/HR. WILL PASS REPORT TO ONCOMING SHIFT
--- NOTE | 2019-10-06 08:00 | NUR ---
PT AWAKE, CONFUSED, AND DISORIENTED. PT STATES "I DON'T KNOW WHERE I AM." PT COOPERATIVE WITH CARE. PT STATES THAT HE IS ANXIOUS AND REPORTS 8/10 GENERALIZED PAIN. FENTANYL PATCH REMAINS IN PLACE. POOR VOICE QUALITY. VOICE IS JESUSITA HOARSE AND PT HAS VERY WEAK COUGH. EXTENSIVE ORAL CARE DONE. HOWEVER, ORAL MUCOSA REMAINS EXTREMELY DRY WELL THE LIPS. MULTIPLE CRACKS/SCABS NOTED TO THE LIPS AND SECRETIONS FROM MOUTH ARE THICK AND BLOODY. ECG SHOWS ST. TEMP 99.3. LUNGS COARSE TO LEFT AND VERY DIMIMISHED ON THE RIGHT SIDE. PT IS TACHYPNEIC WITH RR IN 40'S. HE IS BREATHING THROUGH HIS MOUTH PRIMARILY. SATS>90% ON HUMIDIFIED RA. INCREASED WOB NOTED. NPO. ABDOMEN DISTENDED AND FIRM WITH HYPERACTIVE BT'S. RECTAL TUBE WITH MODERATE AMOUNT OF BROWN LIQUID STOOL. WICK WITH ADEQUATE AMOUNT OF DARK, BRAEDEN URINE TO BSD. LEFT ARM IS SWOLLEN AND ECCHYMOTIC. IT FEELS WARMER THAN THE RIGHT ARM AND IS PAINFUL TO TOUCH. THE PICC LINE IS INTACT AND BOTH FLUSHES AND WITHDRAWS BLOOD WITHOUT DIFFICULTY-6 CM EXPOSED. SKIN TO JASEN AREA, COCCYX, BUTTOCKS, AND UPPER THIGHS IS VERY EXCORIATED. PT GIVEN BED BATH AND CALAZIME APPLIED TO AFFECTED AREA. PT POSITIONED TO COMFORT ON LEFT SIDE.
--- NOTE | 2019-10-06 08:05 | NUR ---
CIWA 9. PT STATES THAT HE FEELS "ANXIOUS." PT DID NOT SLEEP AT ALL LAST NOC. MED WITH ATIVAN 1 MG IVP X 1.
--- NOTE | 2019-10-06 09:05 | NUR ---
PT CONTINUES TO LABOR TO BREATH. RR 40-50'S. SATS 85% ON RA. TITRATED FIO2 UP TO 4 LITERS TO KEEP SATS>90% DR. SANCHEZ UPDATED TO PT CURRENT RESPIRATORY DISTRESS.
--- NOTE | 2019-10-06 09:24 | NUR ---
STAT PORTABLE CXR DONE. RT TO ATTEMPT NT SUCTION, THEN PLACE BIPAP. DR. SANCHEZ AND TIGIST, RT AT BEDSIDE.
--- NOTE | 2019-10-06 09:35 | NUR ---
BIPAP PLACED 14/6 WITH FIO2 60%. SATS>90% RR 38. PT TOLERATING BIPAP WELL.
[2019-10-06 09:47] LABS: Base Excess Venous -3.6 mmol/L; Bicarbonate Venous 21.6 mmol/L (24.0-30.0); PCO2 Venous 29.2 mmHg (38-42); PO2 Venous 36.3 mmHg (38-42); pH Blood Venous 7.45 (7.34-7.37)
--- NOTE | 2019-10-06 10:00 | NUR ---
VBG DONE AND RESULTS TO DR. SANCHEZ. PRECEDEX 0.7 MCG/KG/MIN. SOFT WRIST RESTRAINTS IN PLACE PT REACHING FOR BIPAP MASK. PT CONTINUES TO LABOR TO BREATH. RR UPPER 30'S TO 40'S. SATS>90% ON 30% FIO2. HOWEVER, PT LABORING HARD TO DO SO.
--- NOTE | 2019-10-06 10:18 | NUR ---
PT CONTINUED TO BE DYSPNEIC AND TACHYPNEIC DESPITE BIPAP. WHILE MAINTAINING SATS>90%, INCREASED WOB CONTINUED. DR. SANCHEZ AT BEDSIDE. RSI DONE. PT MED WITH ETOMIDATE 20 MG IVPX1 AND ROCURONIUM 30 MG IVP-INTUBATED WITH 8.0 ETT-24 @ TEETH. OGT PLACED AND CHEST XRAY ORDERED TO CONFIRM PLACEMENT. AFTER DOCTOR DANIEL VIEWED CXR-ORDER GIVEN TO WITHDRAW ETT 1 CM AND ADVANCE OGT 1 CM-AND ADDITIONAL CXR WAS DONE AFTER THE ADJUSTMENTS MADE TO ETT AND OGT. ETT AND OGT PLACEMENT CONFIRMED BY DR. SANCHEZ. DURING INTUBATION, NOTED LARGE AMOUNT OF THICK, BLOODY SECRETIONS IN MOUTH AND OBSTRUCTING VOCAL CORDS. ORAL CARE AND ETT SUCTION PRODUCTIVE OF LARGE AMOUNT OF THICK, BLOODY SECRETIONS WITH LARGE, THICK, BLOODY PLUGS. VENT: AC 14, TV 450, FIO2 40%, PEEP 5, RR 28-32. SATS>90% IN THE JASEN-INTUBATION PERIOD, PROPOFOL DRIP INITIATED FOR SEDATION, PRECEDEX CONTINUES @ 0.7 MCG/KG/MIN, AND PT MED WITH BOTH ATIVAN AND FENTANYL IV FOR PAIN/SEDATION ADJUNCT. SEE EMAR. HR TRENDING 80-100'S. SBP 80'S AND MAP LESS 60. THEREFORE, LEVOPHED DRIP INITIATED. TITRATING TO KEEP MAP 60-65. NS BOLUS INITIATED X 500 CC @ APROX. 1100-PER DR. SANCHEZ ORDER. OGTF INITIATED WITH H20 250 CC Q 6 HOURS.
--- NOTE | 2019-10-06 13:18 | NUR ---
NA+ 148-RESULTS CALLED TO DR. POWERS AND INFORMED THAT PT INTUBATED EARLIER TODAY. REPEAT NA+ @ 1700 TODAY.
--- NOTE | 2019-10-06 14:30 | NUR ---
NOTED THAT PT SKIN VERY WARM TO TOUCH. WICK TEMP PROBE NOT WORKING-REMOVED AND REPLACED WITH NEW #18 FR WICK WITH TEMP PROBE. TEMP 103.1. DR SANCHEZ AWARE. UA SENT PER PROTOCOL. SPUTUM SENT.
--- NOTE | 2019-10-06 14:55 | NUR ---
FIO2 DECREASED TO 35% BY RT. JAYCOB
--- NOTE | 2019-10-06 16:56 | NUR ---
TEMP 103.3 VIA WICK TEMP PROBE. MED WITH TYLENOL 650 MG PER OGT X 1 AND PLACED ICE PACKS TO BACK OF NECK AND AXILLAE. PT INTERMITTENTLY AGIATATED. RR 40'S, PT GRIMACING AND COUGHING. PROPOFOL DRIP @ 30 MCG/KG/MIN AND MED WITH ATIVAN AND FENTANYL FOR PAIN/SEDATION ADJUNCT. MAP 60-65 WITH LEVOPHED @ 15 MCG/MIN. VASOPRESSIN TO BE INITIATED IF LEVOPHED REQUIREMENT IS GREATER THAN 15 MG/MIN TO KEEP MAP 60-65. LUNGS COARSE THROUGH OUT AND DIMINISHED R>L. SATS>90% ON FIO2 35%. ETT AND ORAL SECTRETIONS CONTINUE THICK, OLD BLOOD WITH SOME YELLOW ETT SECRETIONS. FEWER BLOODY PLUGS THIS PM. PT TOLERATING OGTF WELL. INITIATLLY, ASPIRATED BLOOD FROM OGT. DR. SANCHEZ AWARE-PT PLATELETS ARE LOW AND IT WAS BELEIVED TO BE FROM THE TRAUMA OF INTUBATION AND OGT PLACEMENT. SINCE THE TF HAS BEEN INITIATED, THE OGT ASPIRATE HAS SCANT AMOUNT OF OLD BLOOD TO IT AND ONLY ABLE TO ASPIRATE APROX. 5 CC ONLY. WICK CONTINUES TO DRAIN SMALL AMOUNT OF DARK, ORANGE/BRAEDEN URINE TO BSD. RECTAL TUBE WITH 200 CC OF BROWN LIQUID STOOL THIS SHIFT. CALAZIME APPLIED TO AFFECTED AREAS WITH EACH POSITION CHANGE- SKIN TO COCCYX, BUTTOCKS, JASEN AREA, AND THIGHS REMAINS EXCORIATED WITH SCATTERED AREAS OF EXPOSED DERMIS. THE WOUND BEDS ARE PINK, MOIST, AND APPEARS TO HAVE BEEN RUPTURED BLISTERS.
--- NOTE | 2019-10-06 17:14 | NUR ---
NA+ 148-DR. POWERS PHONED WITH RESULTS. ALSO, MD MADE AWARE OF CURRENT VS, STATUS, AND I&O FOR THIS SHIFT. NO NEW ORDERS.
--- NOTE | 2019-10-06 17:20 | NUR ---
ATTEMPTED TO CONTACT PT SISTER SAY-SHE IS LISTED ON THE FACE SHEET NEXT OF KIN. MESSAGE LEFT TO RETURN CALL TO [facility].
--- NOTE | 2019-10-06 17:39 | NUR ---
PT SISTER SAY RETURNED CALL-UPDATED HER TO PT CURRENT STATUS. PLAN TO CALL HER IN THE AM WITH UPDATE, SOMETIME BEFORE 0900. WILL REPORT TO AD OPERATIONS SPECIALIST RN AND REQUEST THAT SAY BE CONTACTED IF ANY SIGNIFICANT CHANGES/FURTHER DECLINE IN PT STATUS.
--- NOTE | 2019-10-06 18:30 | NUR ---
TEMP 102.2 WITH ICE TO THE BACK OF THE NECK AND TO THE AXILLAE. SBP TRENDING 120'S. LEVOPHED TITRATED DOWN TO 13 MCG/MIN.
[2019-10-06 18:40] LABS: Source, Urine Catheter
[2019-10-06 18:45] LABS: Blood, Urine 3+ (Neg); Glucose Qualitative, Urine Neg (Neg); Ketones, Urine 1+ (Neg); Leukocyte Esterase, Urine 1+ (Neg); Nitrite, Urine Neg (Neg); Protein, Urine 2+ (Neg); Urobilinogen, Urine 1+ (Normal)
[2019-10-06 19:19] LABS: Appearance, Urine Hazy (Clear); Bilirubin, Urine 3+ (Neg); Color, Urine Amber (P-Yellow)
[2019-10-06 19:24] LABS: Bacteria Few /hpf; Mucus Light (0-Heavy); Squamous Epithelial Cells Few /hpf (Few); White Blood Cells, Urine 0-2 /hpf (0-5)
[2019-10-06 19:25] LABS: Hyaline Casts 0-2 /lpf (0-2)
--- NOTE | 2019-10-06 20:00 | NUR ---
PT INTUBATED AND SEDATED WITH PROPOFOL. PT GRIMACES TO PAINFUL STIMULI AND WILL TRY TO OPEN EYE'S. TITRATING LEVOPHED TO KEEP MAP 65 OR GREATER. PT HAS BRUISING TO L INNER ARM THAT IS DEEP PURPLE AND EXTENDS PAST HIS ELBOW. ARM IS ALSO SWOLLEN. PICC LINE FLUSHES WELL AND DOES NOT SEEM TO HAVE ANY PROBLEMS. R RING FINGER IS SLIGHTLY SWOLLEN AND LIGHT RED. PT'S BUTTOCKS IS EXCORIATED AND HAS OPEN AREAS OVER ENTIRE BUTTOCKS INTO PERIAREA. OPEN TO AIR BECAUSE THERE IS NO WAY TO GET DRESSINGS TO STICK TO SKIN DUE TO EXTENT OF EXCORIATION. HAS SMALL SCABS SCATTERED T/O BLE WELL. SKIN AND SCLERA IS SLIGHTLY JAUNDICED. RECTAL TUBE IN PLACE DRAININ BROWN. WICK DRAINING ORANGE URINE. NO SIGN OF DISTRESS AT THIS TIME.
[2019-10-07 05:28] LABS: BASOPHILS ABSOLUTE AUTO 0.01 K/mm3 (0.00-0.23); BASOPHILS PERCENT AUTO 0 % (0-2); EOSINOPHILS PERCENT AUTO 0 % (0-6); Hematocrit 22.7 % (37.0-53.0); Hemoglobin 7.3 g/dL (13.5-17.5); Mean Corpuscular HGB 31.5 pg (26.0-34.0); Mean Corpuscular HGB Conc 32.2 g/dL (31.5-36.5); Platelet Count 62 K/mm3 (150-400); RDW Coefficient Variation 15.6 % (11.7-14.2); RDW Standard Deviation 55.7 fL (35.1-46.3); Red Blood Cell Count 2.32 M/mm3 (4.30-5.90)
[2019-10-07 05:35] LABS: IMMATURE GRAN ABSOLUTE AUTO 0.04 K/mm3 (0.00-0.10); IMMATURE GRAN PERCENT AUTO 1 % (0-1); LYMPHOCYTES ABSOLUTE AUTO 1.42 K/mm3 (0.84-5.20); LYMPHOCYTES PERCENT AUTO 18 % (21-46); MONOCYTES ABSOLUTE AUTO 0.42 K/mm3 (0.16-1.47); MONOCYTES PERCENT AUTO 5 % (4-13); Mean Corpuscular Volume 98 fL (80-100); Mean Platelet Volume 13.1 fL (9.1-12.4); NEUTROPHILS ABSOLUTE AUTO 5.91 K/mm3 (1.96-9.15); NEUTROPHILS PERCENT AUTO 76 % (41-73)
[2019-10-07 05:43] LABS: Alanine Aminotransfer (ALT/SGP 71 U/L (12-78); Albumin/Globulin Ratio 0.2 (0.8-1.8); Alk Phos 57 U/L (50-136); Anion Gap 8 mmol/L (6-16); Aspartate Aminotrans (AST/SGOT 64 U/L (12-37); Bilirubin, Total 6.2 mg/dL (0.1-1.0); Blood Urea Nitrogen 26 mg/dL (8-24); Bun/Creatinine Ratio 39.1 (12.0-20.0); CO2, Blood 20 mmol/L (21-32); Calcium, Blood 7.8 mg/dL (8.5-10.1); Chloride, Blood 119 mmol/L (98-108); Creatinine, Blood 0.67 mg/dL (0.60-1.20); Glomerular Filtration Rate >60 (60-); Glucose, Blood 101 mg/dL (70-99); Phosphorus, Blood 4.3 mg/dL (2.5-4.9); Potassium, Blood 4.4 mmol/L (3.5-5.5); Sodium, Blood 147 mmol/L (136-145)
--- NOTE | 2019-10-07 06:27 | NUR ---
CALLED DR. SANCHEZ ABOUT H&H DROP. NO NEW ORDERS JUST WANTS TO WATCH PT. NO SIGNS OF BLEEDING THIS SHIFT.
--- NOTE | 2019-10-07 08:00 | NUR ---
PT REMAINS INTUBATED, SEDATED, AND RESTRAINED. PT GRIMACING AND RESP RATE TO UPPER 40'S WITH ORAL CARE AND REPOSITIONING.PROPOFOL CONTINUES@ 30 MCG/KG/MIN. PT IS VERY STIFF. MED WITH FENTANYL 50 MCG IVP X 1 PRIOR TO REPOSITIONING. ECG SHOWS SR WITH RATE 90'S. PT REMAINS FEBRILE-MED WITH TYLENOL VIA OGT. SBP 120'S-LEVOPHED REMAINS OFF.LUNGS DIMINISHED IN THE BASES R>L. VENT: AC 14, TV 450, PEEP 5, FIO2 35%. SCANT AMOUNT OF THICK, WHITE SECRETIONS FROM ETT. SMALL AMOUNT OF THICK, OLD BLOODY SECRETIONS ORALLY. CONTINUES TO TOLERATE OGTF WELL. MINIMAL RESIDUAL. WICK WITH SMALL AMOUNT OR DARK, ORANGE URINE TO UROMETER. RIGHT ANKLE MEPILEX D&I. EXCORITATED AREA TO COCCYX, BUTTOCKS, JASEN AREA, AND THIGHS SLIGHTLY IMPROVED FROM 10/06/19. CALAZIME IN PLACE. PT SISTER SAY CALLED AND UPDATED TO THE EVENTS OF THE NIGHT AND THIS AM.
--- NOTE | 2019-10-07 10:51 | NUR ---
TF OFF FOR LEEANN @ 1400-R/O ABCESS.
[2019-10-07 11:03] LABS: Bilirubin, Direct 4.1 mg/dL (0.0-0.3); Bilirubin, Indirect 1.9 mg/dL (0.1-0.7)
--- NOTE | 2019-10-07 12:00 | NUR ---
PT REMAINS INTUBATED, SEDATED, AND RESTRAINED.PT GRIMACING, COUGHING, AND RR 46. MED WITH FENTANYL 100 MCG IVP X 1 FOR PAIN/SEDATION ADJUNCT. ALSO, MED WITH ATIVAN 2 MG IVP X 1. PROPOFOL DRIP TITRATED DOWN TO 25 MCG/KG/MIN. SHORTLY THEREAFTER, PT NO LONGER GRIMACING AND RR 26. LUNGS REMAIN DIMINISHED IN THE BASES R>L. PT MAINTAINS SATS>90% ON FIO2 30%. OGTF OFF FOR LEEANN @ 1400. LEFT GREAT TOE ULTRASOUND DONE IT IS RED, SWOLLEN, AND WARM TO TOUCH. PT REMAINS FEBRILE.PT SISTER SAY CONTACTED TO OBTAIN CONSENT FOR BLOOD PRODUCTS. PT TO RECEIVE PLATELETS LATER TODAY.
--- NOTE | 2019-10-07 14:03 | NUR ---
PROPOFOL TITRATED UP TO 40 MCG AND PT MED WITH FENTANYL 100 MCG IVP IN PREP FOR LEEANN-PT REPOSITIONED TO LEFT SIDE,
--- NOTE | 2019-10-07 14:30 | NUR ---
TIME OUT COMPLETED WITH DR. MARSHALL, NINO-METROLOGY MANAGER, DIONE, RT, & FEDE, RN. LEEANN STARTED.
--- NOTE | 2019-10-07 14:45 | NUR ---
LEEANN COMPLETE. PROPOFOL DECREASED TO 25 MCG/KG/MIN.
--- NOTE | 2019-10-07 16:47 | NUR ---
PT RESTING QUIETLY ON THE VENT AT THIS TIME. PROPOFOL @ 30 MCG/KG/MIN. LUNGS REMAIN DIMINISHED IN THE BASES R>L. MAINTAINS SATS>90% ON FIO2 30%. TEMP 101.6- HR 100'S-110'S. MED WITH TYLENOL VIA OGT. OGTF RESUMED AFTER LEEANN. PT CONTINUES TO TOLERATE TF WELL. MININAL RESIDUAL. AFTER THE LEEANN WAS COMPLETED, DR. MARSHALL INITIATED COBRA TRANSFER@ APROX. 1500. NURSING BLISTER PACKAGING MACHINE OPERATOR AND MANAGEMENT PSYCHOLOGIST AWARE. PT SISTER SAY UPDATED BY DR. MARSHALL AND CONSENT FOR TRANSFER OBTAINED VIA PHONE BY ADAL KIMBALL AND HERBERT HERNANDEZ, MANAGEMENT PSYCHOLOGIST.
--- NOTE | 2019-10-07 18:35 | NUR ---
REPORT PHONED TO ADAL CHANEY @ [facility] TO TRANSFER TO ROOM 109 VIA REACH, AIR AMBULANCE. HERBERT HERNANDEZ ARRANGING FOR AIR AMBULANCE.
--- NOTE | 2019-10-07 20:02 | NUR ---
PATIENT INTUBATED AND SEDATED WITH VENT SET AT AC 14, TV 450, PEEP 5, FIO2 30% PATIENT RESP 37. PROPOFOL INFUSING AT 30 MCG. TEMP 103.3. RECTAL TUBE DRAINING BROWN LIQUID STOOL. OG IN PLACE AND CLAMPED FOR TRANSPORT. 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 RODO GALEAS FAXED CHART PER REQUEST OF [facility].
== END 2019-10-07 20:00 | disposition short-term general hospital (02) | DRG 871 ==
LOC: ER 08:31 → ICUW 14:29 → ICUE 14:29 → PCU 14:29 → ICUE 15:01 → PCU 10-01 16:15 → ICUE 10-04 20:09
PROVIDERS: Emergency Medicine; Internal Medicine Critical Care Medicine; Internal Medicine Infectious Disease; Internal Medicine Nephrology; Internal Medicine Pulmonary Disease; ADMIT Family Medicine
PROC: 02HV33Z Insertion of Infusion Device into Superior Vena Cava, Percutaneous Approach (ICD-10-PCS; 2019-10-04)
PROC: 0CJS8ZZ Inspection of Larynx, Via Natural or Artificial Opening Endoscopic (ICD-10-PCS; 2019-10-04)
PROC: 30233N1 Transfusion of Nonautologous Red Blood Cells into Peripheral Vein, Percutaneous Approach (ICD-10-PCS; 2019-10-05)
PROC: 0BH17EZ Insertion of Endotracheal Airway into Trachea, Via Natural or Artificial Opening (ICD-10-PCS; principal; 2019-10-06)
PROC: 5A1945Z Respiratory Ventilation, 24-96 Consecutive Hours (ICD-10-PCS; 2019-10-06)
DX: A40.9 Streptococcal sepsis, unspecified (principal); R65.21 Severe sepsis with septic shock; G93.41 Metabolic encephalopathy; J69.0 Pneumonitis due to inhalation of food and vomit; I33.0 Acute and subacute infective endocarditis; N17.9 Acute kidney failure, unspecified; L02.511 Cutaneous abscess of right hand; E87.0 Hyperosmolality and hypernatremia; T17.908A Unspecified foreign body in respiratory tract, part unspecified causing other injury, initial encounter; R74.0 Nonspecific elevation of levels of transaminase and lactic acid dehydrogenase [LDH]; D50.0 Iron deficiency anemia secondary to blood loss (chronic); I05.8 Other rheumatic mitral valve diseases; F10.21 Alcohol dependence, in remission; Q24.8 Other specified congenital malformations of heart; K70.30 Alcoholic cirrhosis of liver without ascites; F19.10 Other psychoactive substance abuse, uncomplicated; L40.9 Psoriasis, unspecified; R06.03 Acute respiratory distress; F17.210 Nicotine dependence, cigarettes, uncomplicated
CPT/HCPCS: 20604; 31500; 31720; 36415; 36430; 36569; 36600; 51702; 70450; 71045; 72146; 72148; 72157; 72158; 73120; 73140; 74176; 76882; 80047; 80048; 80053; 80074; 80170; 80202; 81001; 82140; 82247; 82248; 82330; 82550; 82553; 82803; 82947; 83605; 83615; 83735; 84100; 84295; 84478; 84484; 84550; 85014; 85025; 85610; 85651; 86140; 86850; 86900; 86901; 86923; 87040; 87070; 87075; 87086; 87147; 87205; 87389; 92526; 92610; 93005; 93010; 93306; 93308; 93312; 93321; 93325; 93925; 93971; 94002; 94003; 94640; 94660; 94760; 96361-59; 96365-59; 96375-59; 97110; 97163; 97530; 99285-25; A9270-GY; C1751; G0480; J0696; J1170; J1580; J1650; J1940; J2060; J2543; J2704; J3010; J3370; J7030; J7040; J7042; J7050; J7060; J7070; P9035